=== PATIENT | female | born 1945 | race Caucasian/White ===

== ENCOUNTER 2020-11-04 08:53 | Outpatient (REF) | payer MEDICARE, SELFPAY ==
--- NOTE | ~2020-11-04 | XR_ITS ---
EXAMINATION: XR CHEST CLINICAL INFORMATION: Dyspnea COMPARISON: None TECHNIQUE: 2 views of the chest were obtained. FINDINGS: The cardiac silhouette is enlarged. The pulmonary winnie appear prominent. It is uncertain whether this represents adenopathy or is related to the pulmonary vasculature. The lungs are clear. There is a small right pleural effusion. There are degenerative changes of the spine. XR/XR chest 2V IMPRESSION: Enlarged cardiac silhouette, prominent pulmonary winnie and small right pleural effusion. This may represent CHF. It is difficult to exclude hilar lymphadenopathy and follow-up is recommended.
--- NOTE | 2020-11-04 17:47 | PFT_ITS ---
Forced vital capacity is moderately decreased and FEV1 is slightly decreased. FEV1/FVC ratio is normal. [id number] is normal. MVV moderately decreased. Post bronchodilator therapy, there is no significant change. Total lung capacity and residual volume normal. Diffusion capacity is slightly decreased, but DL/VA is normal. CONCLUSION: These findings are consistent with restrictive pulmonary disorder of more due to poor effort. The total lung capacity and residual volume are normal. Decreased forced vital capacity, FEV1, and MVV are due to poor effort or muscular fatigue. Clinical correlation recommended. Flaco Copeland MD MSB/MODL / [id number]
== END 2020-11-04 08:54 | disposition home or self-care (01) ==
LOC: HO.RESP 08:53
PROVIDERS: PCP Hospitalist; Visit Provider Internal Medicine
DX: R06.02 Shortness of breath (principal); R06.00 Dyspnea, unspecified
CPT/HCPCS: 71046; 94060; 94727; 94729; 99211

== ENCOUNTER 2021-02-24 11:11 | Outpatient (REF) | payer MEDICARE, SELFPAY ==
[2021-02-24 14:24] LABS: Blood Urea Nitrogen 16 mg/dL (9-16); Estimated Glomerular Filt Rate > 60
== END 2021-02-24 11:12 | disposition home or self-care (01) ==
LOC: HO.10HDL 11:11
PROVIDERS: Visit Provider Otolaryngology
DX: Z01.812 Encounter for preprocedural laboratory examination (principal); R06.02 Shortness of breath
CPT/HCPCS: 36415; 82565; 84520

== ENCOUNTER 2021-03-20 08:40 | Outpatient (REF) | payer MEDICARE, SELFPAY ==
--- NOTE | ~2021-03-20 | CT_ITS ---
EXAMINATION: CT CHEST WITH CONTRAST CLINICAL INFORMATION: Shortness of breath COMPARISON: Previous chest x-ray October 2020 TECHNIQUE: Multidetector volumetric CT imaging of the chest was obtained after the administration of 80 mL of Omnipaque 350 intravenous contrast without immediate adverse reactions. Axial MIP volume rendering provided. Sagittal and coronal reformatted images were obtained. This CT examination was performed using dose optimization techniques as appropriate, variously including the following: *Automated exposure control *Adjustment of mA and/or kV according to patient size (this includes techniques or standardized protocols for targeted exams where dose is matched to indication/reason for exam; i.e. extremities or head) *Use of iterative reconstruction technique Exam is limited due to motion artifact. 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 There is minimal subsegmental atelectasis at the right middle lobe. There is heterogeneous attenuation of the lungs question representing hypoventilatory changes. Differential would include vascular changes from thromboembolic disease. The lungs are otherwise clear. No endobronchial or endotracheal lesion is seen. MEDIASTINUM: The heart is enlarged. There is coronary artery and aortic valve calcified lesions. There is no pericardial effusion. The thoracic aorta is upper normal in size. The pulmonary arteries are enlarged. The right pulmonary artery measures 2.8 cm and the left pulmonary artery measures 3.2 cm. Findings are suggestive of pulmonary artery hypertension. There is shotty mediastinal lymphadenopathy. No enlarged lymph nodes are seen. The thyroid gland is slightly enlarged with multiple small nodules and calcifications. PLEURA: There is a moderate to large right pleural effusion. There is no left pleural effusion. AXILLA: No chest wall mass or enlarged axillary lymph nodes. There is a right lower cervical and supraclavicular lymphadenopathy. Largest lymph node is only partially imaged but appears enlarged and measures at least. 1.2 x 2 cm UPPER ABDOMEN: There is a 2.2 x 2.8 cm partially calcified lesion in the right lobe of the liver. OSSEOUS STRUCTURES: There are degenerative changes of the spine and left shoulder. CT/CT chest w con IMPRESSION: Enlarged heart, coronary artery and aortic valve calcification. Enlarged pulmonary arteries suggestive of pulmonary artery hypertension. Moderate right pleural effusion and compressive atelectasis of the right lower lobe. Heterogeneous attenuation of the lungs questionable for hypoventilatory changes versus thromboembolic disease. Enlarged heterogeneous thyroid gland. Enlarged right lower cervical spine/supraclavicular lymphadenopathy.
--- NOTE | ~2021-03-20 | CT_ITS ---
EXAMINATION: CT SOFT TISSUE NECK WITH CONTRAST CLINICAL INFORMATION: 76-year-old with shortness of breath. COMPARISON: None TECHNIQUE: Following the intravenous administration of 80 mL of Omnipaque 350 intravenous contrast, helical imaging was performed in the axial plane with generation of coronal and sagittal reformatted images. This CT examination was performed using dose optimization techniques as appropriate, variously including the following: *Automated exposure control *Adjustment of mA and/or kV according to patient size (this includes techniques or standardized protocols for targeted exams where dose is matched to indication/reason for exam; i.e. extremities or head) *Use of iterative reconstruction technique DLP: 294 mGy-cm FINDINGS: Skull Base: The visualized intracranial structures appear grossly unremarkable. There is opacification of the left middle ear cavity and mastoid with sclerotic changes in the mastoid. Suggest clinical correlation for otologic disease. There is mucosal thickening in the sphenoid sinus on the left. There is regressive remodeling of the mandibular condyles bilaterally with bony productive changes consistent with bilateral TMJ arthrosis. The bony skull base appears grossly intact. 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 The parotid and submandibular glands are normal in morphology and attenuation. There are small, nonpathologic-appearing bilateral submandibular and submental space lymph nodes and bilateral suprahyoid IJ chain lymph nodes without lymphadenopathy. Infrahyoid Neck: The epiglottis, hypopharynx and larynx are within normal limits. There is heterogeneous enlargement of the thyroid gland with multiple nodules in both thyroid lobes with the largest of these measuring approximately 1.8 cm. Suggest follow-up thyroid ultrasound. There are small, nonpathologic-appearing bilateral IJ chain lymph nodes. Note is made of a 1.9 x 1.4 cm enlarged slightly centrally hypodense lymph node at level 5B on the right adjacent to multiple other much smaller lymph nodes in the same region consistent with focal lymphadenopathy. Upper Chest: See accompanying CT of the chest. Right pleural effusion noted. Skeletal: Lordotic reversal centered at C4-C5 with slight anterolisthesis at this level, with multilevel cervical thoracic DDD and spondylosis. Nonspecific partially lytic lesion noted in the posterior aspect of the left 5th rib. Recommend correlation with radionuclide bone scan. Other Comments: None. CT/CT soft tissue neck w con IMPRESSION: 1. Lymphadenopathy at level 5B on the right near the base of the neck/supraclavicular region, with the largest of these lymph nodes having a slightly hypodense center. Cannot exclude necrotic lymphadenopathy. Recommend correlation with tissue sampling. 2. Multiple thyroid nodules, with the largest of these measuring 1.8 cm on the left. Recommend correlation with thyroid ultrasound. 3. Possible lytic lesion in the posterior aspect of the left 5th rib. Cannot exclude metastatic disease. Suggest correlation with radionuclide bone scan and/or PET CT depending on results of tissue sampling. 4. Findings on the left suggesting otomastoiditis. Correlate for clinical otologic disease. 5. 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 The [facility] staff will call to confirm receipt of this report with acknowledgement of the findings and any recommendations.
[2021-03-20] MEDS: iohexoL 350 MG/ML 100 ML INFUS..BTL IV (09:27)
== END 2021-03-20 08:41 | disposition home or self-care (01) ==
LOC: HO.CT 08:40
PROVIDERS: PCP Hospitalist; Visit Provider Otolaryngology
DX: R06.02 Shortness of breath (principal)
CPT/HCPCS: 70491; 71260; Q9967

== ENCOUNTER → 2021-03-25 09:35 | Outpatient (BNVA) | payer MEDICARE, SELFPAY ==
--- NOTE | 2021-04-03 11:31 | HP_ITS ---
DATE OF SERVICE: 03/25/2021 HISTORY OF PRESENT ILLNESS: This 76-year-old female has been seen by me in the office on 03/25 with complaint of shortness of breath on exertion. This had been going on for a while. She has had 4 cardiac workups at [facility]. Cardiac angiograms being within normal range. She has left bundle branch block. The echocardiogram shows LV ejection fraction 60% to 65%. The patient does have mild diastolic dysfunction and moderate degree of pulmonary hypertension. Previously, the patient has had a pulmonary function test which showed [id number] restrictive pulmonary disorder. No obstructive airway disorder. In the past several weeks, she has had increased shortness of breath on exertion and some tight feeling in the upper chest. She was seen by Dr. Sandoval for ENT evaluation, which was basically negative. A CT scan of the chest was ordered, which shows a moderate-sized pleural effusion on the right side. The etiology of the fusion is not clear at this time. The patient has had no recent symptoms of respiratory infection. She has had no trauma. The most likely cause would be congestive heart failure. Any way because this is the first time a moderate to large size effusion is noted, she needs a full diagnostic workup and also therapeutic evacuation of the fluid. PAST MEDICAL HISTORY: 1. Moderate obesity. 2. Hypertension. 3. Mild diastolic cardiac dysfunction. 4. Pulmonary hypertension. 5. The patient does have valvular heart disease with evidence of mitral and tricuspid incompetence and mild aortic stenosis. ALLERGIES: NONE. BLEEDING DISORDER: None. CURRENT MEDICATIONS: Are as follows: 1. Amlodipine 10 mg daily. 2. Atorvastatin 20 mg daily. 3. Bumex 1 mg daily. 4. Clonazepam 0.5 mg t.i.d. p.r.n. 5. Ibuprofen 400 mg daily. 6. Isosorbide mononitrate ER 60 mg daily. 7. Losartan 100 mg daily. 8. Potassium chloride 20 mEq daily. PHYSICAL EXAMINATION: GENERAL: The patient is moderately obese. VITAL SIGNS: Blood pressure 160/80, pulse 62. EAR, NOSE, THROAT: Examination normal. NECK: No JVD. Trachea midline. No lymphadenopathy. CHEST: Symmetrical. Percussion note is dull over the right lower chest. Rest of the chest is clear. CARDIAC: Sounds are normal. There is a systolic murmur at the aortic area and also along the left sternal border. ABDOMEN: Obese, but soft and nontender. EXTREMITIES: No edema or varicosities. IMAGING: CT scan of the chest on 03/20, shows moderate to large size right-sided pleural effusion and also cardiomegaly. CLINICAL IMPRESSION: Pleural effusion, right side, etiology undetermined, most likely secondary to congestive heart failure, but underlying causes such as malignancy or infection cannot be ruled out. PLAN: The patient is scheduled for ultrasound-guided thoracentesis. Pleural fluid examination for cell count, protein, amylase, cytology, and culture and sensitivity would be ordered. The patient has no contraindication to the planned procedure at this time. Anticoagulant and ibuprofen are being held for 3 days prior to the procedure. MD TYRON Patterson/RODERICK / [id number]
== END ==
PROVIDERS: PCP Hospitalist; Visit Provider Internal Medicine
DX: I38 Endocarditis, valve unspecified (principal); I11.0 Hypertensive heart disease with heart failure; I50.9 Heart failure, unspecified; J90 Pleural effusion, not elsewhere classified; I27.20 Pulmonary hypertension, unspecified; J98.4 Other disorders of lung
CPT/HCPCS: 99212

== ENCOUNTER 2021-04-07 12:03 | Day surgery (SDC) | payer MEDICARE, SELFPAY ==
[2021-04-07] VITALS (7 sets, daily range): BP systolic 170–174; BP diastolic 62–78; PULSE 50–63; RESP 18; TEMP 36.5–36.8; O2SAT 95–98; BMI 37.3
--- NOTE | ~2021-04-07 | XR_ITS ---
EXAMINATION: XR CHEST CLINICAL INFORMATION: Post right thoracentesis COMPARISON: CT chest 03/20/2021. TECHNIQUE: 2 views of the chest were obtained. FINDINGS: Post right thoracentesis there is minimal blunting of right CP angle with right lower lobe atelectasis. There is no visible pneumothorax. The lungs are otherwise well-expanded and clear. The heart size enlarged. Pulmonary vascularity is prominent but no congestion seen. There is moderate spondylosis dorsal spine. XR/XR chest 2V IMPRESSION: Post right thoracentesis there is no visible pneumothorax. There is minimal right lower lobe atelectasis and likely residual small pleural effusion resulting in blunting of right CP angle. The left lung is expanded and clear.
--- NOTE | ~2021-04-07 | US_ITS ---
EXAMINATION: US GUIDED THORACENTESIS CLINICAL INFORMATION: Right pleural effusion. COMPARISON: CT chest 03/20/2021 TECHNIQUE: Following explaining ultrasound-guided thoracentesis procedure, benefits and risk, a written consent was obtained. Patient was placed upright sitting on ultrasound table and preliminary ultrasound imaging was obtained. An optimal site was selected along the right posterior scapular line and marked on the skin. The marked area was cleaned and draped in the usual sterile manner. 1% lidocaine was administered at puncture site. Three small skin incisions and a 4-[place] Yueh catheter was advanced into the right pleural space. After draining 1000 mL of yellowish fluid, the patient developed mild chest pain. At this point, the needle was withdrawn making sure no air leaked in. A sterile dressing was applied post-procedure. A chest x-ray was to be obtained. FINDINGS: On preliminary ultrasound imaging, there is a moderate right pleural effusion seen. Approximately 1000 mL of yellowish fluid was drained and sent to lab as per referring physician's orders. US/US thoracentesis IMPRESSION: Successful ultrasound-guided right thoracentesis performed without immediate complications. Dr. Copeland could not be reached on his cell phone as patient's family demanded for fluid to be sent to pathology for sudden diagnostic tests. However, no such test was ordered by Dr. Copeland.
[2021-04-07 12:45] LABS: MANUAL DIFF FLAG NO
[2021-04-07 12:46] LABS: Glucose, Whole Blood 96 mg/dL (60-115)
[2021-04-07 12:51] LABS: Basophils Percent Auto 0.2 % (0-2); Eosinophils Absolute Auto 0.1 X10*3/uL (0.0-0.4); Eosinophils Percent Auto 2.5 % (0-4); Hematocrit 36.8 % (37-47); Hemoglobin 11.6 g/dl (12.0-16.0); Imm Gran Abs Auto 0.01 X10*3/uL (0.00-0.03); Imm Gran Pct Auto 0.2 % (0.0-0.4); Lymphocytes Absolute Auto 2.1 X10*3/uL (1.2-4.9); Lymphocytes Percent Auto 36.6 % (20-40); Mean Corpuscular HGB Conc 31.5 g/dl (31.0-35.0); Mean Corpuscular Hemoglobin 26.7 pg (27.0-33.0); Mean Corpuscular Volume 84.6 fL (80-98); Mean Platelet Volume 10.4 fL (9.4-12.3); Monocytes Absolute Auto 0.7 X10*3/uL (0.1-1.2); Monocytes Percent Auto 11.8 % (2-11); Neutrophils Absolute Auto 2.8 X10*3/uL (2.0-8.3); Neutrophils Percent Auto 48.7 % (45-73); Platelet Count 211 X10*3/uL (160-400); Red Blood Count 4.35 X10*6/uL (4.20-5.50); Red Cell Distribution Width 14.4 % (11.0-16.0); White Blood Count 5.7 X10*3/uL (4.8-10.8)
[2021-04-07 12:58] LABS: INTERNATIONAL NORM RATIO 1.1 (0.9-1.1)
[2021-04-07 13:01] LABS: Partial Thromboplastin Time 30.9 SEC (24.1-38.0)
[2021-04-07 13:46] LABS: Anion Gap 14 (12-20); Blood Urea Nitrogen 16 mg/dL (9-16); Carbon Dioxide 29 mmol/L (22-29); Chloride 103 mmol/L (96-108); Creatinine Clr Calc Pharmacy 77.3; Estimated Glomerular Filt Rate > 60; Potassium 3.6 mmol/L (3.3-5.1); Sodium 142 mmol/L (135-145); Total Protein 7.4 g/dL (6.5-8.0)
[2021-04-07 13:51] LABS: B Type Natriuretic Peptide 375 pg/mL (<100)
[2021-04-07] MEDS: Acetaminophen 325 MG TABLET 650 MG PO (15:28)
[2021-04-07 15:44] LABS: MN% 97.3 %; PMN% 2.7 %; RBC Pleural Fluid < 0.002 X10*3/uL; WBC Pleural Fluid 0.572 X10*3/uL
[2021-04-07 16:26] LABS: BF Shift QC OK YES; Lymphocytes Pleural Fluid 57 %; Man Diluent Bkgrd OK YES; Neutrophils Pleural Fluid 3 %
[2021-04-07 16:27] LABS: Monocytes Pleural Fluid 16 %; Other Cells Plerual Fl 24 %
[2021-04-08 08:56] LABS: Albumin Pleural Fluid 2.4; LDH Pleural Fluid 142; Total Protein Pleural Fluid 3.7
[2021-04-08 08:57] LABS: Amylase Pleural Fluid 30; Glucose Pleural Fluid 107
== END 2021-04-07 16:35 | disposition home or self-care (01) ==
PROVIDERS: Internal Medicine; Radiology Diagnostic Radiology; PCP Hospitalist; Visit Provider Radiology Diagnostic Radiology
DX: J90 Pleural effusion, not elsewhere classified (principal); I50.9 Heart failure, unspecified; I10 Essential (primary) hypertension; I27.20 Pulmonary hypertension, unspecified; Z79.01 Long term (current) use of anticoagulants; Z79.899 Other long term (current) drug therapy
CPT/HCPCS: 32555; 36415; 71046; 80051; 82042; 82150; 82565; 82945; 82947; 83615; 83735; 83880; 83986; 84155; 84157; 84520; 85025; 85610; 85730; 87071; 87073; 87205; 88112; 88305; 89051

== ENCOUNTER 2021-04-22 10:20 | Outpatient (REF) | payer MEDICARE, SELFPAY ==
--- NOTE | ~2021-04-22 | XR_ITS ---
EXAMINATION: XR CHEST CLINICAL INFORMATION: SOB. COMPARISON: Comparison 04/07/2021 TECHNIQUE: 2 views of the chest were obtained. FINDINGS: There is moderate opacification of right lung base from effusion and underlying atelectasis. The right upper lung and the left lung is expanded and clear. The heart size and pulmonary vascularity is normal. There is moderate spondylosis dorsal spine. No lytic process. XR/XR chest 2V IMPRESSION: Right lower lobe pleural effusion with underlying atelectasis. Mild cardiomegaly.
== END 2021-04-22 10:21 | disposition home or self-care (01) ==
LOC: HO.XRAY 10:20
PROVIDERS: PCP Hospitalist; Visit Provider Internal Medicine
DX: J98.4 Other disorders of lung (principal); J90 Pleural effusion, not elsewhere classified; R06.00 Dyspnea, unspecified
CPT/HCPCS: 71046

== ENCOUNTER 2021-05-04 11:27 | Outpatient (REF) | payer MEDICARE, SELFPAY ==
--- NOTE | ~2021-05-04 | XR_ITS ---
EXAMINATION: XR CHEST CLINICAL INFORMATION: Pleural effusion COMPARISON: Chest x-ray April 22, 2021 TECHNIQUE: 2 views of the chest were obtained. FINDINGS: There is a persistent right pleural effusion which is moderate in volume and unchanged since prior study of April 22, 2021. Likely underlying consolidation/atelectasis at the right lung base as well. The left lung is normally aerated. There is no left pleural effusion. No pulmonary vascular congestion. Cardiac and mediastinal contours are normal. Multilevel degenerative spondylosis spine. XR/XR chest 2V IMPRESSION: Persistent right pleural effusion and right-sided basilar consolidation/atelectasis.
[2021-05-04 11:55] LABS: MANUAL DIFF FLAG NO
[2021-05-04 12:00] LABS: Basophils Percent Auto 0.5 % (0-2); Eosinophils Absolute Auto 0.2 X10*3/uL (0.0-0.4); Eosinophils Percent Auto 5.3 % (0-4); Hematocrit 39.7 % (37-47); Hemoglobin 12.7 g/dl (12.0-16.0); Imm Gran Abs Auto 0.01 X10*3/uL (0.00-0.03); Imm Gran Pct Auto 0.2 % (0.0-0.4); Lymphocytes Absolute Auto 2.1 X10*3/uL (1.2-4.9); Lymphocytes Percent Auto 49.1 % (20-40); Mean Corpuscular Hemoglobin 27.2 pg (27.0-33.0); Mean Platelet Volume 11.1 fL (9.4-12.3); Monocytes Absolute Auto 0.5 X10*3/uL (0.1-1.2); Monocytes Percent Auto 11.1 % (2-11); Neutrophils Absolute Auto 1.5 X10*3/uL (2.0-8.3); Neutrophils Percent Auto 33.8 % (45-73); Platelet Count 199 X10*3/uL (160-400); Red Blood Count 4.67 X10*6/uL (4.20-5.50); Red Cell Distribution Width 14.6 % (11.0-16.0); White Blood Count 4.3 X10*3/uL (4.8-10.8)
[2021-05-04 12:30] LABS: Anion Gap 13 (12-20); Blood Urea Nitrogen 13 mg/dL (9-16); Carbon Dioxide 32 mmol/L (22-29); Chloride 103 mmol/L (96-108); Estimated Glomerular Filt Rate > 60; Potassium 4.1 mmol/L (3.3-5.1); Sodium 144 mmol/L (135-145)
== END 2021-05-04 11:28 | disposition home or self-care (01) ==
LOC: HO.XRAY 11:27
PROVIDERS: PCP Hospitalist; Visit Provider Internal Medicine
DX: I11.0 Hypertensive heart disease with heart failure (principal); I48.20 Chronic atrial fibrillation, unspecified; I50.9 Heart failure, unspecified; D64.9 Anemia, unspecified; J90 Pleural effusion, not elsewhere classified; R06.00 Dyspnea, unspecified; Z79.899 Other long term (current) drug therapy; Z79.01 Long term (current) use of anticoagulants
CPT/HCPCS: 36415; 71046; 80051; 82565; 84520; 85025; 93005; 99202

== ENCOUNTER 2021-06-03 09:02 | Outpatient (REF) | payer MEDICARE, SELFPAY ==
[2021-06-03 11:22] LABS: Anion Gap 15 (12-20); Blood Urea Nitrogen 18 mg/dL (9-16); Calcium 9.4 mg/dL (8.4-10.2); Carbon Dioxide 31 mmol/L (22-29); Chloride 100 mmol/L (96-108); Estimated Glomerular Filt Rate > 60; Glucose Random 103 mg/dL (60-115); Potassium 3.7 mmol/L (3.3-5.1); Sodium 142 mmol/L (135-145)
== END 2021-06-03 09:03 | disposition home or self-care (01) ==
LOC: HO.LAB 09:02
PROVIDERS: PCP Hospitalist; Visit Provider Internal Medicine Cardiovascular Disease
DX: I11.0 Hypertensive heart disease with heart failure (principal); I50.9 Heart failure, unspecified
CPT/HCPCS: 36415; 80048; 99212

== ENCOUNTER 2021-08-22 17:58 | Emergency (ER) | payer MEDICARE, SELFPAY ==
--- NOTE | ~2021-08-22 | XR_ITS ---
EXAMINATION: XR CHEST CLINICAL INFORMATION: Mental status change. COMPARISON: Multiple prior radiographs from 11/04/2020 through 05/04/2021 TECHNIQUE: Frontal view of the chest was obtained. FINDINGS: The heart is moderately enlarged overall stable in size from comparison exams. Fullness of the right hilum is also stable. There is a subtle opacity at the base of the right lung. There is mild blunting of the right costophrenic angle, likely a small right pleural effusion. No pneumothorax. XR/XR chest 1V IMPRESSION: Subtle right basilar opacity and likely small right pleural effusion. Stable cardiomegaly.
[2021-08-22 18:00] VITALS: BP 132/43; PULSE 70; RESP 18; TEMP 37.4; O2SAT 99; BMI 34.9
--- NOTE | 2021-08-22 19:30 | ED_ITS ---
HPI - Altered Mental Status General Chief Complaint: Altered Mental Status Stated Complaint: fever,chest pain, confusion Time Seen by Provider: 08/22/21 18:37 Source: patient, family ( 2 sons) and water hauler ( Kiswahili language) Mode of arrival: ambulatory Limitations: no limitations History of Present Illness HPI narrative: 76-year-old female with history of hypertension, pleural effusion. Patient was at her normal health status until mid day today will start have fever and chills, sounds found her with mild disorientation and had a fever of 102, patient was given Tylenol patient felt better and her mentation when back to normal, patient took her to vaccination of COVID scheduled to have her 3rd booster dose tomorrow, patient otherwise declined any sneezing or nasal drainage, no coughing, no chest pain, no difficulty breathing, no abdominal pain, no nausea, no vomiting, no diarrhea. Patient also declined any dysuria, patient normally take Lasix and normally have urinary frequency but nothing unusual for the patient. Patient in the emergency department is awake, alert, and oriented, able to provide good history. Related Data Home Medications Medication Instructions Recorded Confirmed amlodipine 10 mg tablet 10 mg PO DAILY 03/26/21 06/03/21 apixaban 5 mg tablet (Eliquis) 5 mg PO BID 03/26/21 06/03/21 atorvastatin 20 mg tablet 20 mg PO DAILY 03/26/21 06/03/21 coenzyme [id number] 100 mg-100 cap PO DAILY cap 03/26/21 06/03/21 unit capsule ibuprofen 200 mg tablet (Advil) 400 mg PO DAILY tab 03/26/21 06/03/21 losartan 100 mg tablet 100 mg PO DAILY 03/26/21 06/03/21 omega-3 fatty acids-fish oil 360 1 cap PO DAILY 03/26/21 06/03/21 mg-1,200 mg capsule (Fish Oil) clonazepam 0.5 mg tablet 0.5 mg PO DAILY tab 05/04/21 06/03/21 potassium chloride 20 mEq 20 meq PO DAILY PRN 05/04/21 06/03/21 tablet,extended release Previous Rx's Medication Instructions Recorded bumetanide 1 mg tablet 2 mg PO BID 60 Days #240 tab 06/03/21 isosorbide mononitrate 60 mg 120 mg PO DAILY 60 Days #120 tab 06/03/21 tablet,extended release 24 hr nitrofurantoin 100 mg PO BID #14 cap 08/22/21 monohydrate/macrocrystals 100 mg capsule (Macrobid) Allergies Allergy/AdvReac Type Severity Reaction Status Date / Time No Known Allergies Allergy Verified 06/03/21 09:07 Review of Systems Review of Systems: all other systems are reviewed and are negative Constitutional: Reports as per HPI and Reports no additional constitutional complaints Eyes: Reports as per HPI and Reports no additional eye complaints Reports system reviewed and no additional complaints, except as documented Cardiovascular: Reports as per HPI and Reports no additional cardiovascular complaints Respiratory: Reports as per HPI and Reports no additional respiratory complaints Gastrointestinal: Reports as per HPI and Reports no additional gastrointestinal complaints Genitourinary: Reports no additional female genitourinary complaints Musculoskeletal: Reports no additional musculoskeletal complaints Skin/Breast: Reports system reviewed and no additional complaints, except as docu Psychiatric: Reports no additional psychiatric complaints Endocrine: Reports no additional endocrine complaints Hematologic/Lymphatic: Reports no additional hematologic/lymphatic complaints Allergic/Immunologic: Reports no additional allergic/immunologic complaints Reports system reviewed and no additional complaints, except as documented and Reports Abnormal speech present [facility] Past Medical History Medical History Anemia CHF (congestive heart failure) Dyspnea Hypertension Hypertension Pleural effusion Pulmonary hypertension Restrictive lung disease Valvular heart disease Social History Social History Patient Tobacco Use Status: Never used Tobacco Advance Directives: No Advance Directives Information Provided: Yes Physical Exam Vital Signs: Vital Signs: Last Vital Signs Temp 99.4 F 08/22/21 18:00 Pulse 63 08/22/21 20:47 Resp 18 08/22/21 20:47 BP 141/54 H 08/22/21 20:47 Pulse Ox 94 08/22/21 20:47 BMI result Body Mass Index 34.9 vital signs have been reviewed as appeared to be correct. Blood pressure normal. Heart rate normal. Respiration rate normal. Temperature normal. Oxygen saturation normal. Appearance: Alert. Oriented X3. No acute distress. Head: Normal external exam. Normocephalic. Atraumatic. No Reyez signs noted. No raccoon eyes noted Eyes: PERRLA. EOMI. Conjunctiva and sclera normal. Eyelids normal. ENT: TM's Normal. Pharynx normal. Uvula midline. Moist mucous membranes. No trismus noted. No drooling noted. No muffled voice noted. Neck: Normal inspection. Neck supple. FROM. No adenopathy. Thyroid Normal. No meningeal signs. No neck mass noted. CVS: Normal heart rate and rhythm. Heart sound normal. No murmurs noted. Pulses normal throughout. Respiratory: No respiratory distress. Painless inspiration. Breath sounds normal. No wheezes/rales/rhonchi noted. Chest nontender. No accessory muscle usage noted or decreased air movement noted. Abdomen: Soft and nontender. Bowel sounds normal in all 4 quadrants. No distention noted. No organomegaly noted. No visible injury noted. Back: No CVA tenderness. Full range of motion noted. Skin: Skin warm and dry. Normal skin color. Normal skin turgor. No rashes/lesions/lacerations noted. Extremities: +2 pitting lower extremity edema. Extremities exhibit normal range of motion. Extremities nontender. Neuro: Oriented X 3. Cranial nerve exam: II-XII are grossly intact No motor deficit. No sensory deficit. Reflexes normal. Course Course Course Narrative: assessment and plan. 76-year-old female came in for evaluation of subjective fever and chills, patient found to be afebrile in the emergency department ( patient had a recent p.o. Tylenol at home), but overall patient do not meet criteria for sirs. Leukocytosis patient admitted to stress going on with her life, there is mild leuko Estrace on her urine with bacteria will start the patient on Macrobid and patient was instructed to drink plenty of fluids. MDM - Altered Mental Status Medical Records Attestation: I reviewed the patient's medical records. Lab Data Attestation: I reviewed the patient's lab results. Result diagrams: 08/22/21 19:54 08/22/21 19:54 Labs: Lab Results 08/22/21 08/22/21 08/22/21 Range/Units 19:54 19:54 19:54 WBC 17.8 H (4.8-10.8) X10*3/uL RBC 4.42 (4.20-5.50) X10*6/uL Hgb 12.7 (12.0-16.0) g/dl Hct 38.6 (37.0-47.0) % MCV 87.3 (80.0-98.0) fL MCH 28.7 (27.0-33.0) pg MCHC 32.9 (31.0-35.0) g/dl RDW 13.6 (11.0-16.0) % Plt Count 188 (160-400) X10*3/uL MPV 11.0 (9.4-12.3) fL Immature Gran % (Auto) 0.8 H (0.0-0.4) % Neut % (Auto) 91.0 H (45-73) % Lymph % (Auto) 3.0 L (20-40) % Schleicher % (Auto) 5.1 (2-11) % Eos % (Auto) 0.0 (0-4) % Baso % (Auto) 0.1 (0-2) % Lymph # (Auto) 0.5 L (1.2-4.9) X10*3/uL Schleicher # (Auto) 0.9 (0.1-1.2) X10*3/uL Eos # (Auto) 0.0 (0.0-0.4) X10*3/uL Baso # (Auto) 0.0 (0.0-0.2) X10*3/uL Abs Immat Gran (auto) 0.14 H (0.00-0.03) X10*3/uL Absolute Neuts (auto) 16.2 H (2.0-8.3) x10*3/uL Absolute Nucleated RBC 0.000 (0.0-0.012) X10*3/uL Nucleated RBC % (auto) 0.0 (0.0-0.2) /100WBC Smear Tech's Comments VERIFIED Sodium 141 (135-145) mmol/L Potassium 3.5 (3.3-5.1) mmol/L Chloride 101 (96-108) mmol/L Carbon Dioxide 27 (22-29) mmol/L Anion Gap 17 (12-20) BUN 17 H (9-16) mg/dL Creatinine 0.91 (0.5-1.4) mg/dL Estim Creat Clear Calc 59.1 Estimated GFR 60 Random Glucose 127 H (60-115) mg/dL Lactic Acid 1.8 (0.5-2.0) mmol/L Calcium 9.4 (8.4-10.2) mg/dL Total Bilirubin 1.4 H (0.0-1.0) mg/dL Direct Bilirubin 0.6 H (0.0-0.5) mg/dL AST 22 (5-31) U/L ALT 21 (0-31) U/L Alkaline Phosphatase 98 (39-117) U/L Total Creatine Kinase 102 (26-140) U/L Total Protein 7.5 (6.5-8.0) g/dL Albumin 4.3 (3.5-5.0) g/dL Lipase 24 (8-78) U/L Urine Color Urine Appearance Urine pH (5.0-8.0) Ur Specific [place] (1.005-1.025) Urine Protein (NEG-TRACE) MG/DL Urine Glucose (UA) (NEG) MG/DL Urine Ketones (NEG) MG/DL Urine Blood (NEG) Urine Nitrite (NEG) Ur Leukocyte Esterase (NEG) Urine RBC (0) /HPF Urine WBC (0-4) /HPF Ur Squamous Epith Cells /LPF Urine Bacteria /LPF Urine Mucus /LPF Influenza Type A (PCR) (Negative) Influenza Type B (PCR) (Negative) RSV RNA Qual (PCR) (Negative) SARS-CoV-2 RNA (RT-PCR) (Negative) 08/22/21 08/22/21 Range/Units 19:54 19:58 WBC (4.8-10.8) X10*3/uL RBC (4.20-5.50) X10*6/uL Hgb (12.0-16.0) g/dl Hct (37.0-47.0) % MCV (80.0-98.0) fL MCH (27.0-33.0) pg MCHC (31.0-35.0) g/dl RDW (11.0-16.0) % Plt Count (160-400) X10*3/uL MPV (9.4-12.3) fL Immature Gran % (Auto) (0.0-0.4) % Neut % (Auto) (45-73) % Lymph % (Auto) (20-40) % Schleicher % (Auto) (2-11) % Eos % (Auto) (0-4) % Baso % (Auto) (0-2) % Lymph # (Auto) (1.2-4.9) X10*3/uL Schleicher # (Auto) (0.1-1.2) X10*3/uL Eos # (Auto) (0.0-0.4) X10*3/uL Baso # (Auto) (0.0-0.2) X10*3/uL Abs Immat Gran (auto) (0.00-0.03) X10*3/uL Absolute Neuts (auto) (2.0-8.3) x10*3/uL Absolute Nucleated RBC (0.0-0.012) X10*3/uL Nucleated RBC % (auto) (0.0-0.2) /100WBC Smear Tech's Comments Sodium (135-145) mmol/L Potassium (3.3-5.1) mmol/L Chloride (96-108) mmol/L Carbon Dioxide (22-29) mmol/L Anion Gap (12-20) BUN (9-16) mg/dL Creatinine (0.5-1.4) mg/dL Estim Creat Clear Calc Estimated GFR Random Glucose (60-115) mg/dL Lactic Acid (0.5-2.0) mmol/L Calcium (8.4-10.2) mg/dL Total Bilirubin (0.0-1.0) mg/dL Direct Bilirubin (0.0-0.5) mg/dL AST (5-31) U/L ALT (0-31) U/L Alkaline Phosphatase (39-117) U/L Total Creatine Kinase (26-140) U/L Total Protein (6.5-8.0) g/dL Albumin (3.5-5.0) g/dL Lipase (8-78) U/L Urine Color DK YELLOW Urine Appearance HAZY Urine pH 5.5 (5.0-8.0) Ur Specific [place] 1.015 (1.005-1.025) Urine Protein NEG (NEG-TRACE) MG/DL Urine Glucose (UA) NEG (NEG) MG/DL Urine Ketones NEG (NEG) MG/DL Urine Blood NEG (NEG) Urine Nitrite NEG (NEG) Ur Leukocyte Esterase TRACE H (NEG) Urine RBC 0 (0) /HPF Urine WBC 0-2 (0-4) /HPF Ur Squamous Epith Cells 2+ /LPF Urine Bacteria TRACE /LPF Urine Mucus 1+ /LPF Influenza Type A (PCR) NEGATIVE (Negative) Influenza Type B (PCR) NEGATIVE (Negative) RSV RNA Qual (PCR) NEGATIVE (Negative) SARS-CoV-2 RNA (RT-PCR) NEGATIVE (Negative) Imaging Data Chest x-ray: Attestation: I personally reviewed and interpreted this imaging study as follows: Radiologist's impression: Subtle right basilar opacity and likely small right pleural effusion. Discharge Plan Discharge Clinical Impression: Acute viral syndrome, Acute UTI Patient Disposition: Home, Self-Care Instructions: Viral Syndrome (ED) Prescriptions: New nitrofurantoin monohyd/m-cryst [Macrobid] 100 mg capsule 100 mg PO BID Qty: 14 RF: 0 No Action amlodipine 10 mg tablet 10 mg PO DAILY RF: 0 atorvastatin 20 mg tablet 20 mg PO DAILY RF: 0 Eliquis 5 mg tablet 5 mg PO BID RF: 0 losartan 100 mg tablet 100 mg PO DAILY RF: 0 ibuprofen [Advil] 200 mg tablet 400 mg PO DAILY RF: 0 omega-3 fatty acids-fish oil [Fish Oil] 360-1,200 mg capsule 1 cap PO DAILY RF: 0 coenzyme [id number] 100-100 mg-unit capsule PO DAILY RF: 0 clonazepam 0.5 mg tablet 0.5 mg PO DAILY RF: 0 potassium chloride 20 mEq tablet extended release 20 meq PO DAILY PRNRF: 0 bumetanide 1 mg tablet 2 mg PO BID 60 Days Qty: 240 RF: 3 isosorbide mononitrate 60 mg tablet extended release 24 hr 120 mg PO DAILY 60 Days Qty: 120 RF: 3 Referrals: Mario Castillo MD [Primary Care Provider] - 2 days
[2021-08-22 20:06] LABS: Basophils Percent Auto 0.1 % (0-2); Hematocrit 38.6 % (37.0-47.0); Hemoglobin 12.7 g/dl (12.0-16.0); Imm Gran Abs Auto 0.14 X10*3/uL (0.00-0.03); Imm Gran Pct Auto 0.8 % (0.0-0.4); Lymphocytes Absolute Auto 0.5 X10*3/uL (1.2-4.9); MANUAL DIFF FLAG SCAN; Mean Corpuscular HGB Conc 32.9 g/dl (31.0-35.0); Mean Corpuscular Hemoglobin 28.7 pg (27.0-33.0); Mean Corpuscular Volume 87.3 fL (80.0-98.0); Monocytes Absolute Auto 0.9 X10*3/uL (0.1-1.2); Monocytes Percent Auto 5.1 % (2-11); Neutrophils Absolute Auto 16.2 x10*3/uL (2.0-8.3); Platelet Count 188 X10*3/uL (160-400); Red Blood Count 4.42 X10*6/uL (4.20-5.50); Red Cell Distribution Width 13.6 % (11.0-16.0); SCAN SMEAR FLAG 1; White Blood Count 17.8 X10*3/uL (4.8-10.8)
[2021-08-22 20:06] LABS: Appearance Urine HAZY; Color Urine DK YELLOW; Glucose Urine UA NEG (NEG); Leukocyte Esterase Urine TRACE (NEG); Nitrite Urine NEG (NEG); PH 5.5 (5.0-8.0); Specific Gravity - Urine 1.015 (1.005-1.025); UACC Culture Trigger YES; Urine Blood NEG (NEG); Urine Ketones NEG (NEG); Urine Protein NEG (NEG-TRACE)
[2021-08-22 20:11] LABS: Bacteria Urine TRACE /LPF; Mucus Urine 1+ /LPF; RBC Urine 0 /HPF (0); Squamous Epithelial Cell Urine 2+ /LPF; WBC Urine 0-2 /HPF (0-4)
[2021-08-22 20:16] LABS: Lactic Acid 1.8 mmol/L (0.5-2.0)
[2021-08-22 20:22] LABS: Alanine Aminotransferase 21 U/L (0-31); Albumin Level 4.3 g/dL (3.5-5.0); Alkaline Phosphatase 98 U/L (39-117); Anion Gap 17 (12-20); Aspartate Amino Transferase 22 U/L (5-31); Bilirubin Direct 0.6 mg/dL (0.0-0.5); Bilirubin Total 1.4 mg/dL (0.0-1.0); Blood Urea Nitrogen 17 mg/dL (9-16); Calcium 9.4 mg/dL (8.4-10.2); Carbon Dioxide 27 mmol/L (22-29); Chloride 101 mmol/L (96-108); Creatinine Clr Calc Pharmacy 59.1; Estimated Glomerular Filt Rate 60; Glucose Random 127 mg/dL (60-115); Lipase 24 U/L (8-78); Potassium 3.5 mmol/L (3.3-5.1); Sodium 141 mmol/L (135-145); Total Protein 7.5 g/dL (6.5-8.0)
[2021-08-22 20:26] LABS: SLIDE REVIEW VERIFIED
[2021-08-22 20:43] LABS: Influenza A PCR NEGATIVE (Negative); Influenza B PCR NEGATIVE (Negative); Resp Syncy Virus RNA Qual PCR NEGATIVE (Negative); SARS COV2 PCR INHOUSE NEGATIVE (Negative)
[2021-08-22 20:47] VITALS: BP 141/54; PULSE 63; RESP 18; O2SAT 94
[2021-08-22] MEDS: 0.9 % Sodium Chloride 1,000 ML 999 ML IVCONT (20:56)
[2021-08-22 21:35] LABS: Strep A Nucleic Acid Negative (Negative)
[2021-08-22] MEDS: Nitrofurantoin Monohyd/M-Cryst 100 MG CAPSULE PO (21:43)
== END 2021-08-22 21:49 | disposition home or self-care (01) ==
PROVIDERS: Emergency Provider Emergency Medicine; PCP Hospitalist
DX: B34.9 Viral infection, unspecified (principal); N39.0 Urinary tract infection, site not specified; Z20.822 Contact with and (suspected) exposure to COVID-19; R07.9 Chest pain, unspecified; R50.9 Fever, unspecified; R60.0 Localized edema; I11.0 Hypertensive heart disease with heart failure; I50.9 Heart failure, unspecified; Z79.02 Long term (current) use of antithrombotics/antiplatelets; Z79.01 Long term (current) use of anticoagulants; Z79.899 Other long term (current) drug therapy
CPT/HCPCS: 0241U; 36415; 71045; 80048; 80076; 81001; 82550; 83605; 83690; 85025; 87040; 87086; 87651; 99283; 99284